=== PATIENT | female | born 1980 | race Caucasian/White ===

== ENCOUNTER 2017-10-25 16:27 | Inpatient (IN) | payer OTHER ==
[~2017-10-25] VITALS: Ht 167.6 cm; Wt 74.1 kg
--- NOTE | ~2017-10-25 | S ---
[facility] [address] [place] [address] SURGICAL PATH RPT PROCEDURE Name: KARLA BLACKMON Room #: 423-1 ADM IN M.R.#: [id number] Admission: 10/25/17 Date of : 84 Discharge: Report #: [id number] Path Case #: [id number] PATHOLOGY REPORT COLLECTION DATE: 10/28/2017 RECEIVED DATE: 10/28/2017 SUBMITTING PHYS: Dr. Jeni Duron OTHER PHYS: Dr. David Nielsen SPECIMEN(S) RECEIVED: A.Small bowel B.Gastric C.Distal transverse ulcer D.Distal sigmoid erythema E.Distal rectal erythema * * * * * * * * * * * * FINAL DIAGNOSIS: A. "Small bowel", biopsy: - Small bowel / duodenal mucosa with minimal histologic alterations; no evidence of celiac sprue. B. "Gastric" biopsy: - Gastric mucosa with mild reactive / hyperplastic changes and minimal predominantly chronic inflammation. - Negative H. pylori immunohistochemical stain (block B1); control reacted appropriately. C. "Distal transverse ulcer", biopsy: - Colonic mucosa with patchy acute and chronic inflammation and granulation tissue consistent with ulcer and adjacent reactive, hyperplastic and regenerative changes; no viral inclusions or dysplasia is seen (see comment). D. "Distal sigmoid erythema", biopsy: - Colonic mucosa with acute and chronic inflammation, lamina propria fibrosis and prominent gland atrophy consistent with ischemic colitis. E. "Distal rectal erythema", biopsy: - Colonic mucosa with acute and chronic inflammation, lamina propria fibrosis and prominent gland atrophy consistent with ischemic colitis. COMMENT: No changes to suggest inflammatory bowel disease are identified. No dysplasia is seen in any of the biopsies. Clinical and endoscopic correlation is required. (CLW:pit; 10/29/2017) PATHOLOGIST: Janny Christine M.D. [address] [address] SURGICAL PATH RPT PROCEDURE Name: KARLA BLACKMON Room #: 423-1 ADM IN M.R.#: [id number] Admission: 10/25/17 Date of : 84 Discharge: Report #: [id number] Path Case #: [id number] REPORT ELECTRONICALLY SIGNED BY: Janny Christine M.D. DATE/TIME: 10/29/2017 13:17 * * * * * * * * * * * * GROSS PATHOLOGY: A. Received in formalin labeled "Karla Blackmon, small bowel BX, rule out celiac," are 2 segments of sierra soft tissue measuring 0.6 x 0.2 x 0.2 cm in aggregate dimensions and measuring 0.3 cm each in maximum dimension. The specimen is submitted entirely in cassette A1. B. Received in formalin labeled "Karlajada Blackmon, BX of gastritis, rule out H. pylori," are 3 segments of sierra soft tissue measuring 1.0 x 0.5 x 0.3 cm in aggregate dimensions and ranging from 0.1 to 0.5 cm in maximum dimension. The specimen is submitted entirely in cassette B1. C. Received in formalin labeled "Karla Blackmon, BX of ulcerative mucosa at distal transverse," are 4 segments of sierra soft tissue measuring 1.0 x 1.0 x 0.2 cm in aggregate dimensions and ranging from 0.2 to 0.5 cm in maximum dimension. The specimen is submitted entirely in cassette C1. D. Received in formalin labeled "Karla Blackmon, BX of erythema at distal sigmoid," are 5 segments of sierra soft tissue measuring 1.2 x 0.4 x 0.2 cm in aggregate dimensions and ranging from 0.2 to 0.3 cm in maximum dimension. The specimen is submitted entirely in cassette D1. E. Received in formalin labeled "Karla Blackmon, BX of erythema mucosa distal rectal," are 2 segments of sierra soft tissue measuring 0.7 x 0.2 x 0.2 cm in aggregate dimensions and ranging from 0.3 to 0.4 cm in maximum dimension. The specimen is submitted entirely in cassette E1. (TSD; 10/28/2017) CLINICAL HISTORY: Pre-OP DX: Nausea with vomiting, weight loss, GERD, Hx of polyps Post-OP DX: Erosive gastritis INITIAL CPT CODE(S): A; 94074 B; 50996, 48182 C; 61153 D; 44933 E; 10137 Professional services performed by [facility] at [address], [place] [address] Technical services performed by [facility] at [address] [place] [address], [address], [place] [address]. [address] [address] SURGICAL PATH RPT PROCEDURE Name: KARLA BLACKMON Room #: 423-1 ADM IN M.R.#: [id number] Admission: 10/25/17 Date of : 84 Discharge: Report #: [id number] Path Case #: [id number] [place] [id number] [address] [address] PHONE: [phone] DIRECTOR: Chicho Osborn M.D. * * * END OF REPORT * * *
--- NOTE | ~2017-10-25 | 2DMMODE ---
[facility] [address] [place] [address] 2 D/M-MODE ECHOCARDIOGRAM Name: KARLA BLACKMON Room #: 423-1 ADM IN M.R.#: [id number] Admission: 10/25/17 Attend Phys: David Nielsen, Discharge: Date of : 84 Date of Service: 10/28/17 1125 Report #: [id number] THIS REPORT FOR: //name// APPROVED REPORT Study performed: 10/28/2017 10:40:00 EXAM: Comprehensive 2D, Doppler, and color-flow Echocardiogram Patient Location: Bedside Room #: [facility] Status: routine BSA: 1.83 HR: 48 bpm BP: 92/52 mmHg Rhythm: NSR/Bradycardia Other Information Study Quality: Good Indications Hypotension, short of breath. 2D Dimensions RVDd: 34.04 mm LVEF(%): 54.57 (>50%) IVSd: 8.06 (7-11mm) LVOT Diam: 21.93 (18-24mm) LVDd: 45.76 mm PWd: 7.77 (7-11mm) Ascending Ao: 30.53 (22-36mm) LVDs: 32.86 (25-40mm) Aortic Root: 30.68 mm Cardenas's LVEF: 54.57 % Aortic Valve AoV Peak Rodney.: 1.19 m/s AO Peak Gr.: 5.69 mmHg LVOT Max P.93 mmHg LVOT Max V: 0.86 m/s LYDIA Vmax: 2.71 cm2 Mitral Valve E/A Ratio: 3.4 MV Decel. Time: 147.78 ms MV E Max Rodney.: 1.01 m/s MV A Rodney.: 0.30 m/s MV PHT: 42.86 ms IVRT: 87.66 ms [facility] [place] [address] 2 D/M-MODE ECHOCARDIOGRAM Name: KARLA BLACKMON Room #: 423-1 ADM IN M.R.#: [id number] Admission: 10/25/17 Attend Phys: David Nielsen, Discharge: Date of : 84 Date of Service: 10/28/17 1125 Report #: [id number] Pulmonary Valve PV Peak Rodney.: 0.76 m/s PV Peak Gr.: 2.30 mmHg Tricuspid Valve TR Peak Rodney.: 2.18 m/s RAP Estimate: 5.00 mmHg TR Peak Gr.: 19.08 mmHg PA Pressure: 24.00 mmHg Left Ventricle The left ventricle is normal size. There is normal LV segmental wall motion. There is normal left ventricular wall thickness. Left ventricular systolic function is normal. LVEF is 55%. The left ventricular diastolic function is normal. Right Ventricle The right ventricle is normal size. The right ventricular systolic function is normal. Atria The left atrium size is normal. The right atrium size is normal. Aortic Valve The aortic valve is normal in structure. No aortic regurgitation is present. There is no aortic valvular stenosis. Mitral Valve The mitral valve is normal in structure. Mild mitral regurgitation. Tricuspid Valve The tricuspid valve is normal in structure. Mild tricuspid regurgitation. Estimated PAP is 25mmHg. Pulmonic Valve The pulmonary valve is normal in structure. Trace pulmonic regurgitation. Great Vessels The aortic root is normal in size. The ascending aorta is normal in size. IVC is normal in size and collapses >50% with inspiration. Pericardium There is no pericardial effusion. [facility] [address] [place] [address] 2 D/M-MODE ECHOCARDIOGRAM Name: KARLA BLACKMON Room #: 423-1 ADM IN M.R.#: [id number] Admission: 10/25/17 Attend Phys: David Nielsen, Discharge: Date of : 84 Date of Service: 10/28/17 1125 Report #: [id number] <Conclusion> The left ventricle is normal size. LVEF is 55%. The left ventricular diastolic function is normal. The right ventricle is normal size. The left atrium size is normal. The right atrium size is normal. The aortic valve is normal in structure. Mild mitral regurgitation. Mild tricuspid regurgitation. Estimated PAP is 25mmHg. The aortic root is normal in size. There is no pericardial effusion. <ELECTRONICALLY SIGNED> By: Lm Morataya MD, FACC 10/28/17 1125 1125 1125 Lm Morataya MD, FACC /INF
--- NOTE | ~2017-10-25 | P ---
[facility] [place] [address] [address] [place] [address] PROCEDURE REPORT Name: KARLA BLACKMON Room #: 423-1 ADM IN M.R.#: [id number] Admission: 10/25/17 Attend Phys: David Nielsen MD Discharge: Date of : 84 Report #: [id number] THIS REPORT FOR: //name// CC: DAVID Nielsen DATE OF SERVICE: 10/28/2017 PROCEDURE: Colonoscopy with biopsies. INDICATION FOR PROCEDURE: Evaluate etiologies of left upper quadrant pain. DESCRIPTION OF PROCEDURE: Informed consent for this procedure was obtained prior to the administration of any medication. The risks of the procedure, which include bleeding, perforation, infection, complications of sedation and the possibility I could miss something have been explained to the patient. She has indicated her consent by signing. Propofol was slowly titrated before and during this procedure and the EGD that preceded it. Digital rectal exam reveals no abnormalities other than a skin tag at the 6 o'clock position. The Fujinon colonoscope was then introduced through the anal sphincter and advanced under direct visualization to the terminal ileum. Findings are noted on withdrawal of the scope. The prep is considered adequate after all of the liquid stool was removed with the scope. The terminal ileum mucosa appears normal. Cecum: Normal mucosa. Ascending colon: Normal mucosa. Retroflex view in the ascending colon to look at the back sides of folds did not reveal any abnormalities. Hepatic flexure: Normal mucosa. Transverse colon: In the distal transverse colon, there is a linear strip of what looks like healing ulceration. It is nonbleeding. I biopsied it several times and it bleeds appropriately after the biopsies. So, I do not think it is currently ischemic, but I suspect that ischemia may have been its etiology. Good hemostasis was noted after those biopsies. The remaining transverse colon appears normal. Splenic flexure: Normal mucosa. Descending colon: Normal mucosa. Sigmoid colon: Distally in the sigmoid colon, there is about a 3 cm length of mucosa that is erythematous suggesting colitis. Biopsies were taken x 3 for histopathology. Good hemostasis was noted after those biopsies. In the rectum, there is likewise another area of proctitis that appears mild. Biopsies were obtained x 3 for histopathology. Retroflex view in the rectum did not reveal any other abnormalities. The scope was withdrawn. The patient went to recovery area in stable condition. She tolerated the procedure well. IMPRESSION: 1. Suspect ischemic colitis of the distal transverse colon that may be the etiology of her left upper quadrant pain as well. 2. Proctitis. [address] [address] PROCEDURE REPORT Name: KARLA BLACKMON Room #: 423-1 ADM IN .R.#: [id number] Admission: 10/25/17 Attend Phys: David Nielsen MD Discharge: Date of : 84 Report #: [id number] RECOMMENDATIONS: To await the biopsy results. Okay to give her clear liquid diet and advance as tolerated. Thank you very much once again for allowing me to participate in her care. <ELECTRONICALLY SIGNED> By: Jeni Duron DO 10/29/17 1724 [id number] [id number] Jeni Duron DO /nt
--- NOTE | ~2017-10-25 | EKG ---
[address] [place] [address] ELECTROCARDIOGRAM REPORT Name: KARLA BLACKMON Room #: 423-1 ADM IN M.R.#: [id number] Admission: 10/25/17 Attend Phys: David Nielsen MD Discharge: Date of : 84 Report #: [id number] THIS REPORT FOR: //name// [facility] Test Date: 2017-10-28 Test Time: 08:32:21 Pat Name: KARLA BLACKMON Department: Room: 423 1 Gender: F Grades 1 Thru 5 Teacher: Tete VALLADARES : 1980 Requested By: David Nielsen Order Number: [id number] MD: Fredo Restrepo Measurements Intervals [place] Rate: 50 P: 37 MO: 138 QRS: 60 QRSD: 94 T: 34 QT: 444 QTc: 405 Interpretive Statements Sinus bradycardia Otherwise no significant abnormality Compared to ECG 11/14/1999 16:50:39 T-wave abnormality no longer present Electronically Signed On 10-28-2017 8:45:46 [employer] by Fredo Restrepo [email or web address] <ELECTRONICALLY SIGNED> By: Fredo Restrepo MD, [facility] 10/28/17 0845 1 1 Fredo Restrepo MD, [facility] /EPI
--- NOTE | ~2017-10-25 | P ---
[facility] [place] [address] [address] [place] [address] PROCEDURE REPORT Name: KARLA BLACKMON Room #: 423-1 ADM IN M.R.#: [id number] Admission: 10/25/17 Attend Phys: David Nielsen MD Discharge: Date of : 84 Report #: [id number] THIS REPORT FOR: //name// CC: DAVID Nielsen DATE OF SERVICE: 10/28/[address] David Nielsen. PROCEDURE: EGD with biopsies. INDICATION FOR PROCEDURE: This patient presented with left upper quadrant pain that was quite severe, uncertain etiology, nausea and vomiting. EGD is being performed to try to evaluate the etiology of these symptoms. Informed consent for this procedure was obtained prior to the administration of any medication. The risks of the procedure, which include bleeding, perforation, infection, complications of sedation and the possibility I could miss something have been explained to the patient. She has indicated her consent by signing. Propofol was slowly titrated before and during this procedure for patient comfort by the Anesthesia service. The uBankn upper videoscope was introduced through the upper esophageal sphincter and advanced under direct visualization to the descending duodenum. Findings are noted on withdrawal of the scope. The duodenal mucosa appears normal throughout its entirety. Bile was seen in the duodenal lumen. Biopsies are obtained x 2 to evaluate for possible celiac sprue. Pylorus: Normal mucosa. Antrum: In the antrum, there are multiple erosions that are nonbleeding. These are biopsied x 4 for histopathology. This may be the result of nonsteroidal use. Body: Normal mucosa. Cardia and fundus: Normal mucosa. Retroflex view did not reveal any hiatal hernia. The scope was withdrawn to the esophagus. The Z-line is appropriately located at the top the gastric folds and appears normal. The esophageal mucosa appears normal throughout its entirety. Scope was withdrawn. The patient was turned for colonoscopy. IMPRESSION: Erosive antritis. Other than that, normal EGD to descending duodenum. RECOMMENDATIONS: To await the biopsy results and proceed with colonoscopy at this time. [facility] [address] [place] [address] PROCEDURE REPORT Name: KARLA BLACKMON Room #: 423-1 ADM IN M.R.#: [id number] Admission: 10/25/17 Attend Phys: David Nielsen MD Discharge: Date of : 84 Report #: [id number] Thank you very much once again for allowing me to participate in her care, Dr. Nielsen. <ELECTRONICALLY SIGNED> By: Jeni Duron DO 10/29/17 1724 [id number] [id number] Jeni Duron DO /nt
[2017-10-25 16:30] VITALS: BP 116/68
[2017-10-25 16:48] LABS: ABSOLUTE NEUTROPHILS 3.2 thou/uL (1.4-8.2); BASOPHILS 0.7 % (0.0-2.0); EOSINOPHILS 2.4 % (0.0-3.0); HEMOGLOBIN 14.2 gm/dL (12.0-15.0); MCH 29.4 pg (26.0-34.0); MCHC 33.7 g/dL (28.0-37.0); MCV 87.2 fL (80.0-100.0); MONOCYTES 8.2 % (1.0-8.0); PLATELET COUNT 214 thou/uL (150-400); POLYS 56.7 % (36.0-66.0); RBC 4.82 mil/uL (4.20-5.00); RDW 13.3 % (10.5-14.5); WBC 5.7 thou/uL (4.0-11.0)
[2017-10-25 16:50] LABS: URINE BILIRUBIN NEGATIVE (Negative); URINE BLOOD NEGATIVE (Negative); URINE CLARITY CLEAR; URINE COLOR YELLOW; URINE GLUCOSE-RANDOM* NEGATIVE (Negative); URINE KETONES NEGATIVE (Negative); URINE LEUKOCYTES NEGATIVE (Negative); URINE NITRITE NEGATIVE (Negative); URINE PROTEIN (DIPSTICK) NEGATIVE (Negative); URINE UROBILINOGEN 0.2 E.U./dl (0.2-1.0)
[2017-10-25 16:51] LABS: CALCIUM 9.6 mg/dL (8.5-10.1); POTASSIUM 4.6 mmol/L (3.5-5.1)
[2017-10-25 16:57] LABS: TOTAL BILIRUBIN 0.3 mg/dL (<0.1-1.0); TOTAL PROTEIN 7.2 g/dL (6.4-8.2)
[2017-10-25] MEDS ORDERED: ADIPEX-P37.5 MG PO (18:02)
[2017-10-25 23:54] VITALS: BP 87/48
[2017-10-26 07:05] VITALS: BP 93/51
[2017-10-26 07:30] VITALS: BP 93/51
[2017-10-26 08:55] VITALS: BP 94/52
[2017-10-26 12:09] VITALS: BP 95/54
[2017-10-26 12:46] VITALS: BP 115/73
[2017-10-26 20:30] VITALS: BP 83/38
[2017-10-27] VITALS (7 sets, daily range): BP systolic 76–104; BP diastolic 38–67
[2017-10-27 09:50] LABS: HEMOGLOBIN 12.3 gm/dL (12.0-15.0); MCH 29.3 pg (26.0-34.0); MCHC 33.3 g/dL (28.0-37.0); MCV 88.1 fL (80.0-100.0); RBC 4.2 mil/uL (4.20-5.00); RDW 13.5 % (10.5-14.5); WBC 5.5 thou/uL (4.0-11.0)
[2017-10-27 10:06] LABS: CALCIUM 7.8 mg/dL (8.5-10.1); CREATININE 0.9 mg/dL (0.6-1.0); POTASSIUM 3.9 mmol/L (3.5-5.1); TOTAL BILIRUBIN 0.2 mg/dL (<0.1-1.0); TOTAL PROTEIN 5.7 g/dL (6.4-8.2)
[2017-10-27 16:40] LABS: URINE BILIRUBIN NEGATIVE (Negative); URINE BLOOD NEGATIVE (Negative); URINE CLARITY CLEAR; URINE COLOR YELLOW; URINE GLUCOSE-RANDOM* NEGATIVE (Negative); URINE KETONES NEGATIVE (Negative); URINE LEUKOCYTES-REFLEX NEGATIVE (Negative); URINE NITRITE-REFLEX NEGATIVE (Negative); URINE PROTEIN (DIPSTICK) NEGATIVE (Negative); URINE SPECIFIC GRAVITY 1.015 (1.005-1.035); URINE UROBILINOGEN 0.2 E.U./dl (0.2-1.0)
[2017-10-28] VITALS (11 sets, daily range): BP systolic 82–105; BP diastolic 36–70
[2017-10-28 11:05] LABS: HEMATOCRIT 35.6 % (37.0-47.0); MCH 29.7 pg (26.0-34.0); MCHC 33.8 g/dL (28.0-37.0); MCV 87.8 fL (80.0-100.0); RBC 4.05 mil/uL (4.20-5.00); RDW 13.4 % (10.5-14.5); WBC 4.8 thou/uL (4.0-11.0)
[2017-10-28 11:27] LABS: ALBUMIN 2.9 g/dL (3.4-5.0); CALCIUM 7.6 mg/dL (8.5-10.1); CREATININE 0.8 mg/dL (0.6-1.0); POTASSIUM 3.5 mmol/L (3.5-5.1); TOTAL BILIRUBIN 0.4 mg/dL (<0.1-1.0); TOTAL PROTEIN 5.5 g/dL (6.4-8.2)
[2017-10-29] MEDS ORDERED: PANTOPRAZOLE SO40 M1 PO (13:12)
[2017-10-29 15:15] VITALS: BP 92/54
[2017-10-29 18:29] VITALS: BP 92/54
[2017-12-16] MEDS ORDERED: FLAGYL500 MG PO (02:44)
== END 2017-10-29 19:51 | disposition home or self-care (01) | DRG 393 ==
LOC: ER 16:27 → 4E 18:45 → EROBS 18:45 → 4E 10-26 12:01
PROVIDERS: Emergency Medicine; Family Medicine; Nurse Practitioner Adult Health; Physician Assistant
PROC: 0DB68ZX Excision of Stomach, Via Natural or Artificial Opening Endoscopic, Diagnostic (ICD-10-PCS; principal; 2017-10-28)
PROC: 0DBL8ZX Excision of Transverse Colon, Via Natural or Artificial Opening Endoscopic, Diagnostic (ICD-10-PCS; principal; 2017-10-28)
PROC: 0DBN8ZX Excision of Sigmoid Colon, Via Natural or Artificial Opening Endoscopic, Diagnostic (ICD-10-PCS; principal; 2017-10-28)
PROC: 0DBP8ZX Excision of Rectum, Via Natural or Artificial Opening Endoscopic, Diagnostic (ICD-10-PCS; principal; 2017-10-28)
DX: K55.9 Vascular disorder of intestine, unspecified (principal); K27.4 Chronic or unspecified peptic ulcer, site unspecified, with hemorrhage; K92.1 Melena; N20.0 Calculus of kidney; J45.909 Unspecified asthma, uncomplicated; K59.00 Constipation, unspecified; R63.4 Abnormal weight loss; M89.9 Disorder of bone, unspecified; M47.9 Spondylosis, unspecified; G89.29 Other chronic pain; M54.5 Low back pain; I95.9 Hypotension, unspecified; K62.89 Other specified diseases of anus and rectum; Z88.2 Allergy status to sulfonamides; Z79.899 Other long term (current) drug therapy; Z86.010 Personal history of colon polyps; Z68.26 Body mass index [BMI] 26.0-26.9, adult; Z82.49 Family history of ischemic heart disease and other diseases of the circulatory system
CPT/HCPCS: 10084; 10183; 62110; 62900

== ENCOUNTER 2019-05-26 09:13 | Emergency (ER) | payer OTHER ==
[~2019-05-26] VITALS: Ht 167.6 cm; Wt 89.8 kg
[~2019-05-26 09:13] MED LIST: ADIPEX-P37.5 MG PO; FLAGYL500 MG PO; PANTOPRAZOLE SO40 M1 PO
[2019-05-26] MEDS ORDERED: HYDROCORTISONE10 MG PO (09:39)
[2019-05-26] MEDS ORDERED: FLEXERIL PO (09:39)
[2019-05-26] MEDS ORDERED: VENTOLIN HFA 1818 GM INH (09:40)
[2019-05-26] MEDS ORDERED: OMEPRAZOLE40 MG PO (09:40)
[2019-05-26] MEDS ORDERED: SUMATRIPTAN-NA1 EACH PO (09:40)
[2019-05-26 09:54] LABS: BASOPHILS 0.9 % (0.0-2.0); EOSINOPHILS 0.7 % (0.0-3.0); HEMATOCRIT 42.9 % (37.0-47.0); HEMOGLOBIN 14.4 gm/dL (12.0-15.0); LYMPHOCYTES 26.5 % (24.0-44.0); MCH 29.4 pg (26.0-34.0); MCHC 33.6 g/dL (28.0-37.0); MCV 87.7 fL (80.0-100.0); MONOCYTES 6.9 % (1.0-8.0); PLATELET COUNT 248 thou/uL (150-400); WBC 6.1 thou/uL (4.0-11.0)
[2019-05-26 09:54] LABS: URINE BILIRUBIN NEGATIVE (Negative); URINE BLOOD TRACE (Negative); URINE CLARITY CLEAR; URINE COLOR YELLOW; URINE GLUCOSE-RANDOM* NEGATIVE (Negative); URINE KETONES NEGATIVE (Negative); URINE LEUKOCYTES-REFLEX NEGATIVE (Negative); URINE NITRITE-REFLEX NEGATIVE (Negative); URINE PROTEIN (DIPSTICK) NEGATIVE (Negative); URINE SPECIFIC GRAVITY 1.025 (1.005-1.035); URINE UROBILINOGEN 0.2 E.U./dl (0.2-1.0)
[2019-05-26 10:00] LABS: POTASSIUM 3.5 mmol/L (3.5-5.1)
[2019-05-26 10:06] LABS: ALBUMIN 3.6 g/dL (3.4-5.0); TOTAL BILIRUBIN 0.3 mg/dL (<0.1-1.0); TOTAL PROTEIN 6.9 g/dL (6.4-8.2)
[2019-05-26] MEDS ORDERED: NAPROSYN500 MG PO (10:58)
[2019-05-26] MEDS ORDERED: TRAMADOL 50 MG50 MG PO (10:58)
[2019-05-26 11:16] VITALS: BP 117/75
== END 2019-05-26 11:17 | disposition home or self-care (01) ==
LOC: ER 09:13
PROVIDERS: Emergency Medicine
DX: M54.5 Low back pain (principal); J45.909 Unspecified asthma, uncomplicated; Z90.89 Acquired absence of other organs; Z87.442 Personal history of urinary calculi; Z98.890 Other specified postprocedural states; Z88.2 Allergy status to sulfonamides

== ENCOUNTER → 2019-06-14 | Outpatient (CLI) | payer OTHER ==
[~2019-06-14] VITALS: Ht 152.4 cm; Wt 90.7 kg
[~2019-06-14] MED LIST changes: +AMITRIPTYLINE H10 M3 PO; +FLEXERIL PO; +HYDROCORTISONE10 MG PO; +MOBIC15 MG PO; +NAPROSYN500 MG PO; +OMEPRAZOLE40 MG PO; +SUMATRIPTAN-NA1 EACH PO; +TRAMADOL 50 MG50 MG PO; +VENTOLIN HFA 1818 GM INH
[2019-06-14 11:11] VITALS: BP 127/77
--- NOTE | 2019-06-14 11:33 | NUR ---
Pain Clinic Assessment: 1. History of Osteoarthritis: NONE History of Rheumatoid Arthritis: NONE 2. Height: 5 ft. 0 in. 152.4 cm. Weight: 200.0 lb. oz. 90.720 kg. Patient's BMI: 39.1 3. Vital Signs: BP: 127/77 Pulse: 83 Resp: 14 Temp: 02 Sat: 98 ECG Mon: 4. Pain Intensity: 6 5. Fall Risk: Dizziness: Y Needs help standing or walking: N Fallen in the last 3 months: N Fall risk comments: 6. Patient on Blood Thinner: None 7. History of Hypertension: N 8. Opioid Therapy greater than 6 weeks: Opiate Contract Signed: 9. Risk Assessment Tool Provided: LOW 10. Functional Assessment Tool: 49 11. Recreational Drug Use: Never Drug Type: Tobacco Use: Current Every Day Smoker Tobacco Type: Cigarettes Amount or Packs/day: 1/2 PK How Many Years: Alcohol Use: No Frequency: Quant:
--- NOTE | 2019-07-07 08:25 | HPC ---
[facility] [address] [place] [address] PAIN MANAGEMENT CONSULTATION Name: KARLA BLACKMON Room #: REG [facility]..#: [id number] Admission: 06/14/19 Attend Phys: Derik Silver MD Discharge: Date of : 84 Report #: [id number] THIS REPORT FOR: //name// CC: Derik Nielsen DATE OF SERVICE: 06/14/2019 CHIEF COMPLAINT: Low back and right hip pain. HISTORY: The patient is a 39-year-old female who has been referred to the pain clinic because of pain and discomfort in the lower portion of her back. The patient states that it feels as though she is having pressure in her back. She also experiences some pain and discomfort in her shoulders. Pain can worsen as the day progresses and can be quite problematic in the evening. She is active. She enjoys riding horses. Long hours at work at [employer] can exacerbate her discomfort. Overall, her pain has gradually worsened over the last week. She is sleeping poorly because of the pain. Prolonged lying down increases her back pain. The pain in the hip also can be exacerbated by walking. She notes increased pain in the joint. Pain is better when she is lying on a heating pad. Describes her discomfort overall as continuous, constant, aching, crushing and sharp. Rates it as a 6/10. The patient has had a history of kidney stones in the past. ALLERGIES: SULFA; MORPHINE, severe hypotension and headache, 12/16/2017. CURRENT MEDICATIONS: Tramadol 50 mg q. 6 hours p.r.n., Ventolin inhaler 2 puffs q.i.d. p.r.n., hydrocortisone 10 mg b.i.d., Flexeril 10 mg t.i.d. PAST MEDICAL HISTORY: Lower back pain -- degenerative disk disease at L4-L5, renal stones, ischemic colitis, intractable abdominal pain. Asthma, mild, last attack on 07/02/2018; wisdom teeth and renal stones. [place]'s disease. PAST SURGICAL HISTORY: Tonsillectomy, BMT, hysterectomy in 2011 and appendectomy in 2011. 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 She is working at this juncture. REVIEW OF SYSTEMS: Recent weight change, fatigue, weakness, kidney stones, lightheadedness, dizziness, insomnia, [place]'s disease. LABORATORY DATA: MRI of the lumbar spine dated 10/26/2017. CLINICAL HISTORY: Low back pain and left buttocks pain: 1. L3-L4, without disk bulge. There is no central canal [place] [address] PAIN MANAGEMENT CONSULTATION Name: KARLA BLACKMON [id number] Admission: 06/14/19 Attend Phys: Derik Silver MD Discharge: Date of : 84 Report #: [id number] 2. L4-L5, there is no disk bulge. There is mild bilateral facet arthropathy. There is no central canal or neural foraminal stenosis. 3. L5-S1, there is a posterior annular fissure with a broad-based right paracentral disk protrusion, which abuts the right S1 nerve root in the central canal and contributes to mildly right-sided central canal stenosis. There is mild bilateral facet arthropathy. There are mild changes at this level. Mild right neural foraminal stenosis at L5-S1. PAIN CLINIC ASSESSMENT AND PQRS: 1. History of osteoarthritis. The patient has some osteoarthritic changes in her low back area. 2. History of rheumatoid arthritis. The patient is not being treated for rheumatoid arthritis. 3. Height 5 feet 0 inches, weight 200 pounds, BMI is 39.1. 4. Vital signs: Blood pressure 127/77, pulse is 83, respiratory rate 14, room air saturation 98%. 5. Pain intensity 6/10. 6. Fall history: The patient has not fallen in the last 3 months. 7. Blood thinner. The patient is not on a blood thinning medication. 8. Hypertension. The patient is not being treated for hypertension. 9. Opioids greater than 6 weeks. The patient is not on a regular opioid regimen. 10. Risk assessment tool, low for opioid use. 11. Functional assessment tool 49/70. 12. Recreational drugs: The patient denies. 13. Tobacco: The patient is currently smoking tobacco on a daily basis, smokes one-half pack of cigarettes per day, has smoked for a number of years. Risks and benefits were discussed. 14. Alcohol: The patient denies frequent use of alcoholic beverages. PHYSICAL EXAMINATION: GENERAL: The patient is a well-developed, well-nourished white female. Appears her stated age. She is alert and oriented x 3. Her affect is appropriate. Speech is fluent. HEENT: Normocephalic, atraumatic. Extraocular eye muscles intact. Sclerae nonicteric. Mucous membranes are moist. NECK: Without adenopathy or JVD. HEART: Regular rate. LUNGS: Clear to auscultation. ABDOMEN: Nontender. MUSCULOSKELETAL: The patient has some pain and discomfort in her shoulders. Complains of pain in the low back area. Has pain in the area of the right hip. She has pain in her left knee. EXTREMITIES: Upper extremity muscle strength judged generally to be 5/5 for the major muscle groups in the upper extremity. Lower extremity pain, the patient has pain and discomfort in the low back area down into the area of the right low [facility] [address] [place] [address] PAIN MANAGEMENT CONSULTATION Name: KARLA BLACKMON Room #: REG [facility].#: [id number] Admission: 06/14/19 Attend Phys: Derik Silver MD Discharge: Date of : 84 Report #: [id number] back area with pain radiating into the area of her hip. The patient notes pain in the right buttocks and gluteus angelina area with pain that radiates down in the posterior portion of her right leg. The patient notes increased pain and discomfort in the right hip area with lying down. Anterior and posterior spring tests were not very problematic. Palpation on the right hip does cause the patient to have some increased pain and discomfort in the area of the right hip joint, pain in the low back area with forward bending, lumbar extension, left and right lateral rotation cause some increased pain in the low back area and right hip. IMPRESSION: 1. Low back pain with pain radiating down into the right buttocks area near the S1 dermatomal distribution as well as pain in the right hip. 2. Lower back pain -- degenerative disk disease at L4-L5. 3. Renal stones. 4. Ischemic colitis. 5. Intractable abdominal pain. 6. Asthma, mild, last attack on 07/02/2018. 7. [place] teeth. 8. Renal stones. 9. [place]'s disease. RECOMMENDATIONS: We discussed treatment options with the patient. At this point, we will try the most conservative approach. The patient will be provided meloxicam. She will try this nonsteroidal anti-inflammatory medication and note its efficacy. She will also try Elavil 10 mg at bedtime and continue to increase this to 2 tablets at bedtime and note its efficacy. The patient has used hydrocodone and tramadol in the past. I am not sure that she gleaned a significant amount of benefit from these. Has used Flexeril. She felt that this medication help with the discomfort for maybe 3-4 hours. She is still sleeping poorly. Hopefully, the Elavil medication will help with the sleep factor. Hopefully, this will help also with the chronic pain that she is experiencing in her low back area as well as in the shoulder areas. She will continue with her primary physician in regards to her [place]'s disease. We would like to thank you for letting us participate in her care. We hope she continues to improve. <ELECTRONICALLY SIGNED> By: Derik Silver MD 07/07/19 0825 [id number] Derik Silver MD /[facility]
== END ==
LOC: PAIN 07:10
DX: M54.5 Low back pain (principal); G89.29 Other chronic pain; N20.0 Calculus of kidney; R10.9 Unspecified abdominal pain; J45.909 Unspecified asthma, uncomplicated; E27.1 Primary adrenocortical insufficiency

== ENCOUNTER → 2019-06-30 | Outpatient (CLI) | payer OTHER | LOC: MRI 06-21 10:29 | DX: M89.9 Disorder of bone, unspecified (principal) ==

== ENCOUNTER → 2019-07-19 | Outpatient (CLI) | payer OTHER ==
[~2019-07-19] VITALS: Ht 167.6 cm; Wt 88.0 kg
[2019-07-19 11:09] VITALS: BP 122/77
--- NOTE | 2019-07-19 11:45 | NUR ---
Pain Clinic Assessment: 1. History of Osteoarthritis: NONE History of Rheumatoid Arthritis: NONE 2. Height: 5 ft. 6 in. 167.6 cm. Weight: 194.0 lb. oz. 87.998 kg. Patient's BMI: 37.9 3. Vital Signs: BP: 122/77 Pulse: 79 Resp: 16 Temp: 02 Sat: 97 ECG Mon: 4. Pain Intensity: 8 5. Fall Risk: Dizziness: N Needs help standing or walking: N Fallen in the last 3 months: N Fall risk comments: 6. Patient on Blood Thinner: None 7. History of Hypertension: N 8. Opioid Therapy greater than 6 weeks: N Opiate Contract Signed: 9. Risk Assessment Tool Provided: LOW 10. Functional Assessment Tool: 49/70 11. Recreational Drug Use: Never Drug Type: Tobacco Use: Current Every Day Smoker Tobacco Type: Amount or Packs/day: How Many Years: Alcohol Use: No Frequency: Quant:
--- NOTE | 2019-08-08 21:49 | HPC ---
[facility] [place] [address] PAIN MANAGEMENT CONSULTATION Name: KARLA BLACKMON Room #: REG [facility] M..#: [id number] Admission: 07/19/19 Attend Phys: Derik Silver MD Discharge: Date of : 84 Report #: [id number] THIS REPORT FOR: //name// CC: Derik Nielsen DATE OF SERVICE: 07/19/2019 CHIEF COMPLAINT: Here for an epidural steroid injection. HISTORY: The patient is a 39-year-old female who has been referred to the pain clinic because of pain and discomfort in her back. She is having pain and discomfort that is radiating down the lower portion of her back and involving the right side. She notes that she is having pain in the low back area. Also, has some pain and discomfort in her left knee. She also has some episodes where she feels the left side of her face going numb. Feels that she may have some left arm discomfort as well. She has returned today to undergo an epidural steroid injection. He does find that use of a heating pad can be helpful. Rates her pain as an 8/10 at this point. Sometimes lying down as well as walking can exacerbate her discomfort. She has been noticing this pain and discomfort over the last 18 months. ALLERGIES: SULFA, MORPHINE -- severe hypotension and headache, 12/16/2018. CURRENT MEDICATIONS: Tramadol 50 mg q. 6 hours p.r.n., Ventolin inhaler 2 puffs q.i.d., hydrocortisone 10 mg b.i.d., Flexeril 10 mg t.i.d. PAIN CLINIC ASSESSMENT AND PQRS: 1. History of osteoarthritis. The patient has some osteoarthritic changes in her low back. She has a history of rheumatoid arthritis. The patient is not being treated for rheumatoid arthritis. 2. Height 5 feet 0 inches, weight 194 pounds, BMI is 37.9. 3. Vital signs: Blood pressure 122/77, pulse 79, respiratory rate 16, room air saturation 97%. 4. Pain intensity 04/08. 5. Fall risk. The patient has not fallen in the last 3 months. 6. Blood thinner. The patient is not on a blood thinning medication. 7. Hypertension. The patient is not being treated for hypertension. 8. Opioids greater than 6 weeks. The patient receives medication from one source. 9. Risk assessment tool, low for opioid. 10. Functional assessment tool, 49/70. 11. Recreational drug use: The patient denies. 12. Tobacco: The patient currently smokes. 13. Alcohol. The patient denies use of alcoholic beverages. [address] [address] PAIN MANAGEMENT CONSULTATION Name: KARLA BLACKMON [id number] Admission: 07/19/19 Attend Phys: Derik Silver MD Discharge: Date of : 84 Report #: [id number] PHYSICAL EXAMINATION: GENERAL: The patient is a well-developed, well-nourished white female. Appears her stated age. She is alert and oriented x 3. Her affect is appropriate. Speech is fluent. HEENT: Normocephalic, atraumatic. Extraocular eye muscles intact. Sclerae nonicteric. Mucous membranes are moist. NECK: Without adenopathy or JVD. HEART: Regular rate. LUNGS: Clear to auscultation. ABDOMEN: Nontender. MUSCULOSKELETAL: The patient has pain and discomfort in her shoulders. Has complaint of pain in lower portion of her back. Has pain in the right hip with pain in her left knee as well. EXTREMITIES: Upper extremity muscle strength judged to be 5/5 for the major muscle groups in the upper extremity. The patient has pain radiating down to the low back area and into her right hip. Has some increased pain down the posterior portion of her leg in the L5-S1 dermatomal distribution. IMPRESSION: 1. Low back pain with pain radiating down to the right buttocks near the L5-S1 area of the right hip. 2. Lower back pain with degenerative disk disease at L4-L5. 3. Renal stones. 4. Ischemic colitis. 5. Intractable abdominal pain. 6. Asthma, mild, last attack on 07/02/2018. 7. [place] teeth. 8. Lewes's disease. RECOMMENDATIONS: We discussed treatment options with the patient. Risks and benefits of an epidural steroid injection were discussed. Possible complications of the procedure were reviewed. They include but are not limited to infection, worsening of pain, no improvement in pain, nerve trauma. The patient elects to proceed. PROCEDURE NOTE: The patient was placed in the prone position on the examination table in the examination room. Her back was sterilely prepped at the L5-S1 area. A 0.25% bupivacaine was infiltrated. A 17-gauge Tuohy with loss of resistance technique was passed at the L5-S1 area after it had been anesthetized with 0.25% bupivacaine. There was no CSF, heme or paresthesia. Total of 80 mg of Depo-Medrol, 40 mg of triamcinolone and 2 mL of 0.25% bupivacaine was injected. The patient tolerated the procedure well. There were no complications. Her pain was 5 at the time of discharge. A total of 8 seconds' fluoroscopy time was used. She will follow up in the future as needed. [facility] [address] [facility] [place] [address] PAIN MANAGEMENT CONSULTATION Name: LORRIKARLAPHIL MCLAIN Room #: REG [facility] M.R.#: [id number] Admission: 07/19/19 Attend Phys: Derik Silver MD Discharge: Date of : 84 Report #: [id number] We would like to thank you for letting us participate in her care. We hope she continues to improve. <ELECTRONICALLY SIGNED> By: Derik Silver MD 08/08/19 2149 [id number] Derik Silver MD /PMT
== END | disposition home or self-care (01) ==
LOC: PAIN 07:06
DX: M51.16 Intervertebral disc disorders with radiculopathy, lumbar region (principal); J45.909 Unspecified asthma, uncomplicated; F17.210 Nicotine dependence, cigarettes, uncomplicated; Z98.890 Other specified postprocedural states; Z87.442 Personal history of urinary calculi; Z87.19 Personal history of other diseases of the digestive system; Z79.899 Other long term (current) drug therapy; Z88.2 Allergy status to sulfonamides; Z88.8 Allergy status to other drugs, medicaments and biological substances

== ENCOUNTER → 2020-07-03 | Outpatient (CLI) | payer BC ==
[~2020-07-03] VITALS: Ht 167.6 cm; Wt 98.5 kg
[~2020-07-03] MED LIST changes: +IBUPROFEN 600600 M1 PO; +NEURONTIN300 MG PO
[2020-07-03 12:42] VITALS: BP 153/96
== END | disposition home or self-care (01) ==
LOC: PAIN 06:55
PROVIDERS: ATTEND Anesthesiology Pain Medicine
DX: M54.16 Radiculopathy, lumbar region (principal); G89.29 Other chronic pain; Z98.890 Other specified postprocedural states; Z79.899 Other long term (current) drug therapy; Z88.2 Allergy status to sulfonamides

== ENCOUNTER 2020-07-18 11:16 | Emergency (ER) | payer BC ==
[~2020-07-18] VITALS: Ht 167.6 cm; Wt 95.3 kg
[2020-07-18 11:51] LABS: ABSOLUTE NEUTROPHILS 9.2 thou/uL (1.4-8.2); BASOPHILS 0.6 % (0.0-2.0); EOSINOPHILS 0.3 % (0.0-3.0); HEMATOCRIT 44.8 % (37.0-47.0); MCH 30.1 pg (26.0-34.0); MCHC 33.4 g/dL (28.0-37.0); MCV 90.2 fL (80.0-100.0); MONOCYTES 5.1 % (1.0-8.0); PLATELET COUNT 272 thou/uL (150-400); RBC 4.97 mil/uL (4.20-5.00); RDW 14.5 % (10.5-14.5); WBC 11.1 thou/uL (4.0-11.0)
[2020-07-18 12:07] LABS: CALCIUM 9.7 mg/dL (8.5-10.1); CREATININE 1.3 mg/dL (0.6-1.0); POTASSIUM 3.7 mmol/L (3.5-5.1)
--- NOTE | 2020-07-18 12:13 | EKG ---
[facility] [place] [address] ELECTROCARDIOGRAM REPORT Name: KARLA BLACKMON Room #: [facility] M.R.#: [id number] Admission: Attend Phys: Discharge: Date of : 84 Report #: [id number] THIS REPORT FOR: cc: David Nielsen MD, Neal A. MD Santiago, Patrick MD [facility] ~ THIS REPORT FOR: //name// 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
[2020-07-18 12:14] LABS: ALBUMIN 3.9 g/dL (3.4-5.0); TOTAL BILIRUBIN 0.5 mg/dL (0.2-1.0); TOTAL PROTEIN 7.7 g/dL (6.4-8.2)
[2020-07-18 13:26] LABS: URINE BILIRUBIN NEGATIVE (Negative); URINE BLOOD NEGATIVE (Negative); URINE CLARITY CLEAR; URINE COLOR YELLOW; URINE GLUCOSE-RANDOM* NEGATIVE (Negative); URINE KETONES NEGATIVE (Negative); URINE LEUKOCYTES-REFLEX NEGATIVE (Negative); URINE NITRITE-REFLEX NEGATIVE (Negative); URINE PROTEIN (DIPSTICK) NEGATIVE (Negative); URINE UROBILINOGEN 0.2 E.U./dl (0.2-1.0)
[2020-07-18] MEDS ORDERED: ZPAK PO (15:01)
[2020-07-18] MEDS ORDERED: PROMETH-CODEIN 65 ML PO (15:05)
[2020-07-18 15:19] VITALS: BP 134/74
== END 2020-07-18 15:19 | disposition home or self-care (01) ==
LOC: ER 11:16
PROVIDERS: Physician Assistant
DX: R05 Cough (principal); E86.0 Dehydration; R06.02 Shortness of breath; J02.9 Acute pharyngitis, unspecified; R11.10 Vomiting, unspecified; R10.9 Unspecified abdominal pain; Z20.828 Contact with and (suspected) exposure to other viral communicable diseases; Z90.711 Acquired absence of uterus with remaining cervical stump; Z90.49 Acquired absence of other specified parts of digestive tract; Z79.899 Other long term (current) drug therapy; Z88.2 Allergy status to sulfonamides

== ENCOUNTER → 2020-10-31 | Outpatient (CLI) | payer BC ==
[~2020-10-31] MED LIST changes: +PROMETH-CODEIN 65 ML PO; +ZPAK PO
== END ==
LOC: MRI 10:04
PROVIDERS: ATTEND Family Medicine
DX: S73.102A Unspecified sprain of left hip, initial encounter (principal); M76.02 Gluteal tendinitis, left hip; X58.XXXA Exposure to other specified factors, initial encounter; Y93.89 Activity, other specified; Y92.89 Other specified places as the place of occurrence of the external cause; Y99.8 Other external cause status